=== PATIENT | female | born 1955 | race Caucasian/White ===

== ENCOUNTER 2016-10-28 14:04 | Inpatient (IN) | payer OTHER ==
[~2016-10-28] VITALS: Ht 160 cm; Wt 41.3 kg
[~2016-10-28 14:04] MED LIST: ADVAIR 250/501 EA INH; ASPIR LOW81 MG PO; B-1100 MG PO; CETIRIZINE5 MG PO; CLINDAMYCIN HC150 MG PO; Flovent 220 M220 MCG INH; IBU800 MG PO; IMDUR SA30 MG PO; ISORDIL TITRADO30 MG PO; LIPITOR40 MG PO; NATURE'S BLEND F1 MG PO; PLAVIX75 MG PO; PROAIR HFA0.09 MG/AC INH; PROTONIX40 MG PO; PROZAC20 MG PO; REMERON15 M2 PO; SINEMET 25-100M1 TAB PO; SPIRIVA18 MCG PO; SUBOXONE1 FI1 SL; THEOPHYLLINE E300 MG PO; THEOPHYLLINE200 M1 PO; TRAZODO50 MG PO; VENTOLIN 02.5 MG/3 M INH; VENTOLIN H0.09 MG/AC INH; VISINE 15 ML15 ML OPH; VISTARIL25 MG PO; XANAX0.5 MG PO; [UNRECOGNIZED DRUG - OTHER] PO
[2016-10-28 14:17] VITALS: BP 153/85
[2016-10-28 14:49] LABS: URINE AMPHETAMINES < 1000 (1000ng/ml); URINE BARBITURATES < 200 (200ng/ml); URINE COCAINE < 300 (300ng/ml)
[2016-10-28 14:50] LABS: BASO % 0.6 % (0.0-1.0); EOS % 0.4 % (1.0-4.0); HEMATOCRIT 50.1 % (37.0-47.0); HEMOGLOBIN 16.7 g/dl (12.0-16.0); LYMPH # 0.9 10*3/uL (1.3-4.4); LYMPH % 12.3 % (27.0-41.0); MEAN CELL VOLUME 90.4 fl (81.0-99.0); MEAN CORPUSCULAR HGB 30.1 pg (27.0-31.0); MEAN CORPUSCULAR HGB CONC 33.3 g/dl (33.0-37.0); MEAN PLATELET VOLUME 8.8 fl (9.6-12.3); MONO # 0.1 10*3/uL (0.1-1.0); MONO % 1.7 % (3.0-9.0); NEUT # 5.9 10*3/uL (2.3-7.9); NEUT % 84.9 % (47.0-73.0); PLATELET COUNT AUTOMATED 343 10*3/uL (130-400); RED BLOOD COUNT 5.54 10*6/uL (4.10-5.10); RED CELL DISTRI WIDTH 13.7 % (0-14.5); WHITE BLOOD COUNT 6.9 10*3/uL (4.8-10.8)
[2016-10-28 15:03] LABS: BILIRUBIN, TOTAL 0.4 mg/dl (0.2-1.0); BUN 10 mg/dl (7-24); CARBON DIOXIDE 26 mmol/L (21-32); CHLORIDE 106 mmol/L (98-107); EST GLOM FILT AFRICAN AMERICAN > 60 ml/min; GLUCOSE 145 mg/dL (65-99); POTASSIUM 3.6 mmol/L (3.5-5.1); SGOT/AST 11 IU/L (3-35); SGPT/ALT 15 U/L (12-78); SODIUM 142 mmol/L (136-145); TOTAL PROTEIN 8.6 gm/dL (6.4-8.2)
[2016-10-28 15:04] LABS: ALKALINE PHOSPHATASE 148 U/L (45-117)
[2016-10-28 16:00] VITALS: BP 148/61
[2016-10-28] MEDS ORDERED: ADVAIR 250/501 EA INH (16:37)
[2016-10-28] MEDS ORDERED: VENTOLIN 02.5 MG/3 M INH (16:37)
[2016-10-28 20:00] VITALS: BP 139/67
[2016-10-28 20:52] LABS: BILIRUBIN NEGATIVE (NEGATIVE); BLOOD NEGATIVE (NEGATIVE); CLARITY SL CLOUDY (CLEAR); COLOR YELLOW (YELLOW); GLUCOSE NEGATIVE (NEGATIVE); KETONE NEGATIVE (NEGATIVE); LEUKO ESTERASE NEGATIVE (NEGATIVE); NITRITE NEGATIVE (NEGATIVE); PH 8.5 (5.0-9.0); PROTEIN 1+ (NEGATIVE); SPECIFIC GRAVITY 1.015 (1.005-1.030)
[2016-10-28 21:08] LABS: BACTERIA 1+; URINE REFLEX COMMENT NO (NO); WBC 0-2 wbc/hpf (0-5)
[2016-10-29] VITALS: BP 118/74
[2016-10-29 04:00] VITALS: BP 154/88
[2016-10-29 08:00] VITALS: BP 134/72
[2016-10-29 12:00] VITALS: BP 135/75; BP 153/79
[2016-10-29 15:45] VITALS: BP 121/74
[2016-10-29 20:00] VITALS: BP 156/73
[2016-10-30] VITALS: BP 125/75
[2016-10-30 08:10] VITALS: BP 132/76
== END 2016-10-30 11:20 | disposition left against medical advice (07) | DRG 872 ==
LOC: ED 14:04 → EDHOLD 14:57 → 5E 14:57
PROVIDERS: Nurse Practitioner Family
DX: A41.9 Sepsis, unspecified organism (principal); D75.1 Secondary polycythemia; L02.414 Cutaneous abscess of left upper limb; F11.23 Opioid dependence with withdrawal; F32.9 Major depressive disorder, single episode, unspecified; B19.20 Unspecified viral hepatitis C without hepatic coma; J44.9 Chronic obstructive pulmonary disease, unspecified; I25.10 Atherosclerotic heart disease of native coronary artery without angina pectoris; F41.1 Generalized anxiety disorder; F17.210 Nicotine dependence, cigarettes, uncomplicated; Z82.49 Family history of ischemic heart disease and other diseases of the circulatory system; Z80.8 Family history of malignant neoplasm of other organs or systems; Z79.899 Other long term (current) drug therapy